=== PATIENT | female | born 1965 | race Caucasian/White ===

== ENCOUNTER 2017-11-24 22:18 | Emergency (ER) | payer MEDICAID, OTHER ==
[2017-11-24 22:34] VITALS: BP 168/94; PULSE 67; RESP 22; TEMP 98.5; O2SAT 95
--- NOTE | 2017-11-25 00:11 | C.PDOC ---
History Of Present Illness 51 year old female with a Hx of back pain presents to the ER with a complaint of exacerbation of her back pain. Patient is on 800mg of motrin but states she ran out this past week. She states she is usually seen in [facility] and given an unknown shot which she is requesting here in the ER. Denies recent injury, weakness, numbness, incontinence, dysuria, or hematuria. Time Seen by Provider: 11/24/17 22:59 Chief Complaint (Nursing): Back Pain History Per: Patient History/Exam Limitations: no limitations Onset/Duration Of Symptoms: Days Current Symptoms Are (Timing): Still Present Quality Of Discomfort: Unable To Describe Previous Symptoms: Back Pain, Chronic Pain Associated Symptoms: None Exacerbating Factor(s): Nothing Recent travel outside of the [place]: No Past Medical History Reviewed: Historical Data, Nursing Documentation, Vital Signs Vital Signs: Last Vital Signs Temp 98.5 F 11/24/17 22:27 Pulse 67 11/24/17 22:27 Resp 22 11/24/17 22:27 BP 168/94 H 11/24/17 22:27 Pulse Ox 95 11/25/17 00:12 - Medical History PMH: Asthma, Hyperlipidemia Surgical History: Cholecystectomy Family History: States: Unknown Family Hx - Social History Hx Alcohol Use: No Hx Substance Use: No Review Of Systems Genitourinary: Negative for: Dysuria, Incontinence, Hematuria Musculoskeletal: Positive for: Back Pain Neurological: Negative for: Weakness, Numbness Physical Exam - Physical Exam Appears: Non-toxic, No Acute Distress Skin: Normal Color, Warm, Dry Head: Atraumatic, Normacephalic Eye(s): bilateral: Normal Inspection Gastrointestinal/Abdominal: Other (Obese) Back: No CVA Tenderness, No Vertebral Tenderness, Paraspinal Tenderness (Lumbar) Extremity: Normal ROM (x4) Neurological/Psych: Oriented x3, Normal Speech, Normal Motor, Normal Sensation Gait: Steady ED Course And Treatment O2 Sat by Pulse Oximetry: 95 (Room air) Pulse Ox Interpretation: Normal Progress Note: Toradol administered with relief. Patient is ambulatory in the ER without any difficulty or pain, will discharge home with instructions to continue her motrin and robaxin for pain and follow up with PMD for further evaluation. Disposition Counseled Patient/Family Regarding: Diagnosis, Need For Followup, Rx Given - Disposition Referrals: [facility] [Outside] Disposition: HOME/ ROUTINE Disposition Time: 23:59 Condition: STABLE Additional Instructions: Continue robaxin Motrin for pain Return to ER if worse Prescriptions: Ibuprofen [Motrin Tab] 800 mg PO QID #24 tab Instructions: Chronic Back Pain (ED) Forms: [facility] (Czech) - Clinical Impression Clinical Impression: Chronic back pain - PA / BOTTLE [employer]ORTER / Resident Statement MD/DO has reviewed & agrees with the documentation as recorded. - Scribe Statement The provider has reviewed the documentation as recorded by the Scribgregory Sorenson All medical record entries made by the Kourtneyibgregory were at my direction and personally dictated by me. I have reviewed the chart and agree that the record accurately reflects my personal performance of the history, physical exam, medical decision making, and the department course for this patient. I have also personally directed, reviewed, and agree with the discharge instructions and disposition.
== END 2017-11-25 00:23 | disposition home or self-care (01) ==
LOC: C.ER 22:18
DX: G89.29 Other chronic pain (principal); M54.9 Dorsalgia, unspecified
CPT/HCPCS: 96372; 99283; J1885